=== PATIENT | male | born 1955 | race Hispanic/Latino ===

== ENCOUNTER → 2022-12-03 | Outpatient (CLI) | payer OTHER, MEDICARE | END | disposition home or self-care (01) | LOC: SHCH 14:59 | PROVIDERS: ATTEND Internal Medicine Cardiovascular Disease | DX: I35.8 Other nonrheumatic aortic valve disorders (principal); I45.10 Unspecified right bundle-branch block; I51.7 Cardiomegaly; I51.89 Other ill-defined heart diseases | CPT/HCPCS: 93306 ==

== ENCOUNTER 2023-02-01 10:28 | Day surgery (SDC) | payer OTHER, MEDICARE ==
[2023-01-30 14:44] LABS: BASOPHILS % (AUTO) 0.3 % (0.0-5.0); EOSINOPHILS % (AUTO) 1.9 % (0.0-8.0); HEMATOCRIT 46.6 % (42-54); LYMPHOCYTES % (AUTO) 29.3 % (21.0-51.0); MEAN CORPUSCULAR HEMOGLOBIN 30.3 pg (27.0-33.0); MEAN CORPUSCULAR HGB CONC 34.5 g/dL (32.0-36.0); MEAN CORPUSCULAR VOLUME 87.8 fL (79-99); MONOCYTES % (AUTO) 7.7 % (3.0-13.0); NEUTROPHILS % (AUTO) 60.6 % (40.0-77.0); PLATELET COUNT (AUTO) 268 K/uL (130-400); RED BLOOD CELL COUNT(AUTO) 5.31 MIL/uL (4.50-6.20); RED CELL DISTRIBUTION WIDTH 12.7 % (11.0-15.5); WHITE BLOOD COUNT (AUTO) 12.1 K/uL (4.8-10.8)
[2023-01-30 14:54] LABS: INR 0.99 (0.85-1.15); PROTHROMBIN TIME 11.5 SEC (9.6-11.6)
[2023-01-30 15:10] LABS: CREATININE 1.4 mg/dL (0.5-1.5); POTASSIUM 4.3 mmol/L (3.5-5.1)
[2023-01-31 15:37] VITALS: BP 149/69
[~2023-02-01] VITALS: Ht 170.2 cm; Wt 82.9 kg
[2023-02-01] VITALS (9 sets, daily range): BP systolic 122–150; BP diastolic 61–75
[~2023-02-01 10:28] MED LIST: AEC81 PO; AMLO2.5T4 PO; BACL10TA PO; CARV25TA PO; METF-446 PO; ROSU20TA73 PO; SACU1TAB4 PO
[2023-02-01] MEDS ORDERED: 0.9%NACL 1000ML 1,000 ML IV ONE (10:54)
[2023-02-01 11:04] LABS: BASOPHILS % (AUTO) 0.5 % (0.0-5.0); EOSINOPHILS % (AUTO) 1.6 % (0.0-8.0); HEMATOCRIT 45.4 % (42-54); LYMPHOCYTES % (AUTO) 28.3 % (21.0-51.0); MEAN CORPUSCULAR HEMOGLOBIN 30.4 pg (27.0-33.0); MEAN CORPUSCULAR HGB CONC 34.6 g/dL (32.0-36.0); MONOCYTES % (AUTO) 7.1 % (3.0-13.0); NEUTROPHILS % (AUTO) 62.1 % (40.0-77.0); PLATELET COUNT (AUTO) 250 K/uL (130-400); RED BLOOD CELL COUNT(AUTO) 5.16 MIL/uL (4.50-6.20); RED CELL DISTRIBUTION WIDTH 12.5 % (11.0-15.5); WHITE BLOOD COUNT (AUTO) 10.4 K/uL (4.8-10.8)
[2023-02-01] MEDS ORDERED: IOHEXOL-350 50ML VIAL IV ONE ×2 (12:54→14:21)
[2023-02-01] MEDS ORDERED: MEPERIDINE-PF 25 MG/ML SYG ONE ×2 (12:54→13:15)
[2023-02-01] MEDS ORDERED: BUPIVACAINE/PF 0.25% 10ML VIAL IJ ONE (12:54)
[2023-02-01] MEDS ORDERED: MIDAZOLAM HCL 1 MG/ML 2ML VIAL ONE ×2 (12:54→13:15)
[2023-02-01] MEDS ORDERED: LIDOCAINE HCL 1% MDV 50ML VIAL ONE (12:54)
[2023-02-01] MEDS ORDERED: CEFAZOLIN SODIUM 1 GM VIAL ONE (12:55)
[2023-02-01] MEDS ORDERED: FENTANYL CITRATE PF 50 MCG/1 ML 2ML VIAL ONE (14:56)
[2023-02-01] MEDS ORDERED: TRAM50TA4 PO (15:40)
[2023-02-01] MEDS ORDERED: ACETAMINOPHEN WITH CODEINE 1 TAB TAB ONE (15:56)
[2023-02-01] MEDS ORDERED: ACETAMINOPHEN 500 MG TABLET PO PRN (16:00)
[2023-02-01] MEDS ORDERED: ACETAMINOPHEN WITH CODEINE 1 TAB TAB PO PRN (16:00)
== END 2023-02-01 18:30 | disposition home or self-care (01) ==
LOC: DAH 10:28
PROVIDERS: ATTEND Internal Medicine Cardiovascular Disease
DX: I25.5 Ischemic cardiomyopathy (principal); I11.0 Hypertensive heart disease with heart failure; I50.42 Chronic combined systolic (congestive) and diastolic (congestive) heart failure; I45.10 Unspecified right bundle-branch block; I47.20 Ventricular tachycardia, unspecified; I25.10 Atherosclerotic heart disease of native coronary artery without angina pectoris; E11.51 Type 2 diabetes mellitus with diabetic peripheral angiopathy without gangrene; E78.5 Hyperlipidemia, unspecified; Z79.01 Long term (current) use of anticoagulants; Z79.899 Other long term (current) drug therapy; Z82.49 Family history of ischemic heart disease and other diseases of the circulatory system; Z83.3 Family history of diabetes mellitus; Z98.890 Other specified postprocedural states; Z79.82 Long term (current) use of aspirin; Z79.84 Long term (current) use of oral hypoglycemic drugs
CPT/HCPCS: 80048; 85025 ×2; 85610; 85730; 36415 ×2; 93005; 33249; 33225; 82948 ×2; 71045; C1769; C1882; C1900; C1896; C1895; J3010; J0690; J7030; J2250 ×2; J3490 ×2; J2175 ×2; Q9967 ×2; A4215; A4222; A4221; A4663; A4216; A4606; A4223 ×3; 99156; 99157

== ENCOUNTER → 2024-11-12 | Outpatient (CLI) | payer OTHER, MEDICARE ==
[~2024-11-12] MED LIST changes: -ROSU20TA73 PO; +ROSU20TA98 PO; +TRAM50TA4 PO
== END | disposition home or self-care (01) ==
LOC: SHCH 09:44
PROVIDERS: ATTEND Internal Medicine Cardiovascular Disease
DX: I08.0 Rheumatic disorders of both mitral and aortic valves (principal); I25.5 Ischemic cardiomyopathy
CPT/HCPCS: 93306

== ENCOUNTER → 2024-11-26 | Outpatient (CLI) | payer OTHER, MEDICARE ==
[~2024-11-26] MED LIST changes: +FENTanyl CITRate PF 50 MCG/1 ML 20ML VIAL IJ ONE; +MIDAZOLAM HCL 1 MG/ML 2ML VIAL ONE; +ceFAZolin SODIUM 1 GM VIAL ONE; +ketaMINE 50MG/ML SYRINGE 50 MG/ML DISP.SYRIN ONE; +ondanSETRON 4MG INJ ONE; +proPOFol 10 MG/ML 20ML VIAL IV ONE; +rocuRONium bROMide 10MG/1ML 5ML VL ONE
[2024-11-26] MEDS: REGADENOSON 0.4 MG/5 ML PF SYG IVP ONE (15:39)
== END | disposition home or self-care (01) ==
LOC: SHCH 08:11
PROVIDERS: ATTEND Internal Medicine Cardiovascular Disease
DX: I25.10 Atherosclerotic heart disease of native coronary artery without angina pectoris (principal); R06.00 Dyspnea, unspecified
CPT/HCPCS: 78452; 93017; J0690; J3490 ×3; J2250; J2704; J2405; J3010; J2785; A9500 ×2